=== PATIENT | female | born 1950 | race Caucasian/White ===

== ENCOUNTER 2017-05-17 09:50 | Emergency (ER) | payer MEDICARE, BC ==
[2017-05-17 10:12] VITALS: BP 130/60
--- NOTE | 2017-05-17 10:36 | UC ---
Respiratory Complaint HPI - HPI Summary HPI Summary: Pt presents with body aches, fever, and fatigue. She tells me that yesterday she had an abrupt onset of a fever, body aches, fatigue "feeling worn out", and felt that her skin hurt everywhere. She has not been ill recently. Admits that she is under a lot of stress because her is undergoing chemotherapy and she is very busy. She denies headache, dizziness, cough, sinus congestion, earache, ST, SOB, chest pain, abdominal pain, N/V/D/C, recent injury, numbness, or tingling. - History of Current Complaint Hx Obtained From: Patient Hx Last Menstrual Period: post Severity Initially: Moderate Severity Currently: Moderate Pain Intensity: 7 Pain Scale Used: 0-10 Numeric <Phillip Easton - Last Filed: 05/17/17 18:59> <Isis Ying - Last Filed: 05/18/17 14:16> - History of Current Complaint Chief Complaint: UCGeneralIllness Stated Complaint: FEVER, ACHES, AND CHILLS Time Seen by Provider: 05/17/17 10:36 - Allergies/Home Medications Allergies/Adverse Reactions: Allergies Allergy/AdvReac Type Severity Reaction Status Date / Time Shellfish Allergy Allergy Swelling Verified 05/17/17 10:12 PMH/Surg Hx/FS Hx/Imm Hx Previously Healthy: Yes - Surgical History Surgical History: Yes Surgery Procedure, Year, and Place: hysterectomy, uterine repair surgery - appendix out at that time. csection x2 - Social History Occupation: Retired Lives: With Family Alcohol Use: Rare Substance Use Type: None Smoking Status (MU): Never Smoked Tobacco <Phillip Easton - Last Filed: 05/17/17 18:59> Review of Systems Constitutional: Fever, Fatigue Skin: Other - Sensitivity everywhere Eyes: Negative ENT: Negative Respiratory: Negative Cardiovascular: Negative Gastrointestinal: Negative Genitourinary: Negative Motor: Negative Neurovascular: Negative Musculoskeletal: Other: - Body aches Neurological: Negative Psychological: Negative All Other Systems Reviewed And Are Negative: Yes <Phillip Easton - Last Filed: 05/17/17 18:59> Physical Exam Triage Information Reviewed: Yes Appearance: Well-Appearing, Well-Nourished Vital Signs: Initial Vital Signs Temp 98.4 F 05/17/17 10:06 Pulse 101 05/17/17 10:06 Resp 18 05/17/17 10:06 BP 130/60 05/17/17 10:06 Pulse Ox 96 05/17/17 10:06 Vital Signs Reviewed: Yes Eyes: Positive: Conjunctiva Clear. Negative: Conjunctiva Inflamed, Discharge ENT: Positive: Hearing grossly normal, Pharynx normal, TMs normal, Tonsillar swelling - 1+, Uvula midline. Negative: Pharyngeal erythema, Nasal congestion, Nasal drainage, TM bulging, TM dull, TM red, Tonsillar exudate, Sinus tenderness Neck: Positive: Supple, Nontender, No Lymphadenopathy Respiratory: Positive: Chest non-tender, Lungs clear, Normal breath sounds, No respiratory distress, No accessory muscle use Cardiovascular: Positive: RRR, No Murmur, Pulses Normal, Brisk Capillary Refill Abdomen Description: Positive: Nontender, No Organomegaly, Soft. Negative: CVA Tenderness (R), CVA Tenderness (L), Distended, Guarding Bowel Sounds: Positive: Present Musculoskeletal: Positive: Strength Intact, ROM Intact, No Edema Neurological: Positive: Alert, Muscle Tone Normal, Other: - CN II-XII grossly intact. No focal deficits. Psychological: Positive: Age Appropriate Behavior Skin: Negative: rashes, significant lesion(s) <Phillip Easton - Last Filed: 05/17/17 18:59> Vital Signs: Initial Vital Signs Temp 98.4 F 05/17/17 10:06 Pulse 101 05/17/17 10:06 Resp 18 05/17/17 10:06 BP 130/60 05/17/17 10:06 Pulse Ox 96 05/17/17 10:06 <Isis Ying - Last Filed: 05/18/17 14:16> Diagnostic Evaluation - Laboratory O2 Sat by Pulse Oximetry: 96 - EKG Cardiac Rate: NL Cardiac Rhythm: Sinus: Normal - Rate 91. No ST elevation <Phillip Easton - Last Filed: 05/17/17 18:59> Respiratory Course/Dx - Course Course Of Treatment: Flu swab neg. POC glucose 157, fasting - has not eaten yet today. EKG was NSR with possible old inferior infarct. No acute changes. No ST elevation. Likely viral syndrome, will treat conservative with rest, fluids, and tylenol/ibuprofen. F/u with pcp regarding elevated fasting BG without dx of DM. - Differential Dx/Diagnosis Differential Diagnosis/HQI/PQRI: Asthma, Bronchitis, CHF, Influenza, Lower Resp Infection, Sinusitis, Tuberculosis Provider Diagnoses: Fatigue. Body aches. Elevated fasting blood glucose <Phillip Easton - Last Filed: 05/17/17 18:59> Discharge <Phillip Easton - Last Filed: 05/17/17 18:59> <Isis Ying - Last Filed: 05/18/17 14:16> - Discharge Plan Condition: Stable Disposition: HOME Patient Education Materials: Viral Syndrome (ED) Referrals: Chiquita Caba MD [Primary Care Provider] - As Soon As Possible Additional Instructions: If you develop a fever, SOB, chest pain, new or worsening symptoms - please call your PCP or go to the ED. Please wear a mask around anyone that is immunocompromised or undergoing chemotherapy. Please follow up with your primary doctor regarding your elevated blood sugar ( 157 here). Attestation Statement User Type: Provider - I was available for consult. This patient was seen by the VALENTE. The patient was not presented to, seen by, or examined by me. -Janet <Isis Ying - Last Filed: 05/18/17 14:16>
== END 2017-05-17 12:00 | disposition home or self-care (01) ==
LOC: UCEAST 09:50
DX: R53.83 Other fatigue (principal); R52 Pain, unspecified; R73.09 Other abnormal glucose
CPT/HCPCS: 87502; 93005; 99212; G0463

== ENCOUNTER 2017-05-18 17:02 | Emergency (ER) | payer MEDICARE, BC ==
[2017-05-18 19:01] LABS: Hematocrit 32 % (35-47); Hemoglobin 11.3 g/dl (12.0-16.0); Mean Corpuscular HGB Conc 36 g/dl (31-36); Mean Corpuscular Hemoglobin 35 pg (27-31); Mean Corpuscular Volume 98 fL (80-97); Mean Platelet Volume 7 um3 (7.4-10.4); Red Blood Count 3.26 10^6/ul (4.0-5.4); Red Cell Distribution Width 13 % (10.5-15); White Blood Count 10.1 10^3/ul (3.5-10.8)
[2017-05-18 19:14] LABS: Albumin 3.7 g/dL (3.2-5.2); BUN/Creatinine Ratio 18.8 (8-20); Calcium 9.3 mg/dL (8.6-10.3); EGFR African American 85.3 (>60); EGFR Non-African American 66.3 (>60); Globulin 3.7 g/dL (2-4); Magnesium 2.1 mg/dL (1.9-2.7); Potassium 3.2 mmol/L (3.5-5.0); Total Bilirubin 0.5 mg/dL (0.2-1.0); Total Protein 7.4 g/dL (6.4-8.9)
[2017-05-18] MEDS ORDERED: Acetaminophen TAB* 325 MG PO ONE (21:28)
--- NOTE | 2017-05-18 21:58 | RAD ---
INDICATION: Fever and chills. Body aches COMPARISON: None TECHNIQUE: PA and lateral dual-energy views were obtained. FINDINGS: Bones/Soft Tissues: There are no acute bony findings. Cardiomediastinal: The cardiomediastinal silhouette is normal. Lungs: There is a left suprahilar infiltrate. The remaining lung scott are clear.. Pleura: There are no pleural effusions. Other: None IMPRESSION: LEFT SUPRAHILAR INFILTRATE. SUGGEST FOLLOW-UP TO DOCUMENT COMPLETE RESOLUTION. IF THERE IS NOT COMPLETE RESOLUTION ON A FOLLOW-UP EXAMINATION IN 7-10 DAYS, SUGGEST CT IMAGING.
[2017-05-18] MEDS: NS 0.9% 1000 ML* 2,000 ML IV ONE (22:16)
[2017-05-18] MEDS ORDERED: Levofloxacin TAB* 250 MG PO ONE (22:32)
[2017-05-18 22:52] LABS: Urine Bacteria Absent (Absent); Urine Bilirubin Negative (Negative); Urine Glucose Negative (Negative); Urine Nitrite Negative (Negative)
[2017-05-18] MEDS ORDERED: cefTRIAXone VIAL(*) 1,000 MG in NS 0.9% 50 ML* 50 ML IVPB ONE (23:39)
[2017-05-18 23:40] VITALS: BP 120/70
--- NOTE | 2017-05-19 04:33 | ED ---
Yamila Rand Edward, scribed for Gualberto Sy MD on 05/18/17 at 2127 . HPI Febrile Illness - HPI Summary HPI Summary: 67 y/o female presents to the ED c/o constant cough and congestion starting 2 days ago. Pt c/o body aches, chills first. Pt also developed a fever that was 103.6 this afternoon. Pt was seen at [facility] yesterday and an influenza test was negative. Denies urinary symptoms, ABD pain. PMHx HTN, ulcerative colitis, RA. - History of Current Complaint Chief Complaint: EDGeneral Hx Obtained From: Patient Hx Last Menstrual Period: post Onset/Duration: Started Days Ago, Still Present Timing: Constant Aggravating Factors: Nothing Alleviating Factors: Nothing Associated Signs and Symptoms: Chills, Joint Pain, Other: - fever - Allergy/Home Medications Allergies/Adverse Reactions: Allergies Allergy/AdvReac Type Severity Reaction Status Date / Time Shellfish Allergy Allergy Swelling Verified 05/18/17 17:05 PMH/Surg Hx/FS Hx/Imm Hx Previously Healthy: No Endocrine/Hematology History: Reports: Hx Thyroid Disease Cardiovascular History: Reports: Hx Hypertension Musculoskeletal History: Denies: Hx Rheumatoid Arthritis, Hx Osteoporosis - Cancer History Hx Chemotherapy: No Hx Radiation Therapy: No - Surgical History Surgery Procedure, Year, and Place: hysterectomy, uterine repair surgery - appendix out at that time. csection x2 Infectious Disease History: No Infectious Disease History: Denies: Hx Clostridium Difficile, Hx Hepatitis, History Other Infectious Disease, Traveled Outside the [place] in Last 30 Days - Family History Known Family History: Positive: Unknown - Social History Alcohol Use: Rare Hx Substance Use: No Substance Use Type: Reports: None Hx Tobacco Use: No Smoking Status (MU): Never Smoked Tobacco Review of Systems Positive: Fever, Chills, Other - body aches Eyes: Negative ENT: Other - sinus congestion Cardiovascular: Negative Positive: Cough Gastrointestinal: Negative Genitourinary: Negative Musculoskeletal: Negative Skin: Negative Neurological: Negative Psychological: Normal All Other Systems Reviewed And Are Negative: Yes Physical Exam Triage Information Reviewed: Yes Vital Signs On Initial Exam: Initial Vitals Temp Pulse Resp BP Pulse Ox 99.4 F 115 16 136/69 98 05/18/17 17:05 05/18/17 17:05 05/18/17 17:05 05/18/17 17:05 05/18/17 17:05 Vital Signs Reviewed: Yes Appearance: Positive: Well-Appearing, No Pain Distress Skin: Positive: Warm - Warm to touch, Skin Color Reflects Adequate Perfusion, Dry, Other - No rash Head/Face: Positive: Normal Head/Face Inspection Eyes: Positive: EOMI, LUIS ALFREDO ENT: Positive: TMs normal, Other - tacky mucous membranes Neck: Positive: Supple, Nontender Respiratory/Lung Sounds: Positive: Clear to Auscultation, Breath Sounds Present Cardiovascular: Positive: Pulses are Symmetrical in both Upper and Lower Extremities, Tachycardia - but regular Abdomen Description: Positive: Nontender, Soft Bowel Sounds: Positive: Present Musculoskeletal: Positive: Normal, Strength/ROM Intact Neurological: Positive: Normal, Sensory/Motor Intact Diagnostics - Vital Signs Vital Signs Temp Pulse Resp BP Pulse Ox 05/18/17 19:07 101.1 F 101 16 136/65 100 05/18/17 17:05 99.4 F 115 16 136/69 98 - Laboratory Lab Results: Lab Results 05/18/17 05/18/17 05/18/17 Range/Units 18:37 18:37 18:37 WBC 10.1 (3.5-10.8) 10^3/ul RBC 3.26 L (4.0-5.4) 10^6/ul Hgb 11.3 L (12.0-16.0) g/dl Hct 32 L (35-47) % MCV 98 H (80-97) fL MCH 35 H (27-31) pg MCHC 36 (31-36) g/dl RDW 13 (10.5-15) % Plt Count 234 (150-450) 10^3/ul MPV 7 L (7.4-10.4) um3 Neut % (Auto) 82.7 (38-83) % Lymph % (Auto) 7.3 L (25-47) % Barry % (Auto) 9.5 H (1-9) % Eos % (Auto) 0 (0-6) % Baso % (Auto) 0.5 (0-2) % Absolute Neuts (auto) 8.3 H (1.5-7.7) 10^3/ul Absolute Lymphs (auto) 0.7 L (1.0-4.8) 10^3/ul Absolute Monos (auto) 1.0 H (0-0.8) 10^3/ul Absolute Eos (auto) 0 (0-0.6) 10^3/ul Absolute Basos (auto) 0 (0-0.2) 10^3/ul Absolute Nucleated RBC 0.01 10^3/ul Nucleated RBC % 0.1 Sodium 126 L (133-145) mmol/L Potassium 3.2 L (3.5-5.0) mmol/L Chloride 90 L (101-111) mmol/L Carbon Dioxide 22 (22-32) mmol/L Anion Gap 14 H (2-11) mmol/L BUN 16 (6-24) mg/dL Creatinine 0.85 (0.51-0.95) mg/dL Est GFR ( Amer) 85.3 (>60) Est GFR (Non-Af Amer) 66.3 (>60) BUN/Creatinine Ratio 18.8 (8-20) Glucose 101 H (70-100) mg/dL Lactic Acid 1.1 (0.5-2.0) mmol/L Calcium 9.3 (8.6-10.3) mg/dL Magnesium 2.1 (1.9-2.7) mg/dL Total Bilirubin 0.50 (0.2-1.0) mg/dL AST 24 (13-39) U/L ALT 17 (7-52) U/L Alkaline Phosphatase 61 (34-104) U/L C-React Prot High Sens 152.47 mg/L Total Protein 7.4 (6.4-8.9) g/dL Albumin 3.7 (3.2-5.2) g/dL Globulin 3.7 (2-4) g/dL Albumin/Globulin Ratio 1.0 (1-3) Result Diagrams: 05/18/17 18:37 05/18/17 18:37 Lab Statement: Any lab studies that have been ordered have been reviewed, and results considered in the medical decision making process. - Radiology CXR Xray Interpretation: Positive (See Comments) - LEFT SUPRAHILAR INFILTRATE. SUGGEST FOLLOW-UP TO DOCUMENT COMPLETE RESOLUTION. IF THERE IS NOT COMPLETE RESOLUTION ON A FOLLOW-UP EXAMINATION IN 7-10 DAYS, SUGGEST CT IMAGING. Radiology Interpretation Completed By: Radiologist Re-Evaluation - Re-Evaluation 1 Re-Evaluation Time: 22:29 Change: Improved Comment: Discuss XR results, plan of care. Pt has a history of immune suppression. Course/Dx - Course Course Of Treatment: Pt on immunosuppressants. Infiltrate on xray. Started abx - - dose of IV abx and oral levaquin that she will be transitioned to. Pt would like to discharge. IVF given and pt improving here. Close f/u with PMD. Return inst/precautions provided. - Febrile Illness Differential Diagnoses: Bacteremia, Fever of Unknown Origin, Pneumonia - Diagnoses Provider Diagnoses: Left upper lobe pneumonia Discharge - Discharge Plan Condition: Improved Disposition: HOME Prescriptions: Albuterol inh POWDER (NF) [Proair Respiclick] 108 mcg INH Q4HR PRN #1 ml PRN Reason: Cough Benzonatate [TESSALON 200 MG CAP] 200 mg PO TID PRN #20 cap PRN Reason: Cough guaiFENesin ER TAB [Mucinex*] 600 mg PO BID #20 tab.er Levofloxacin TAB* [Levaquin TAB*] 750 mg PO DAILY #6 tab Patient Education Materials: Bacterial Pneumonia (ED) Referrals: Chiquita Caba MD [Primary Care Provider] - Additional Instructions: Rest. Deep breathing exercises. Humidifier while sleeping. Return with persistent fever, short of breath, worse or other concerns. Treat fever with tylenol. Stay well hydrated. The documentation as recorded by the Yamila rodrigues Edward accurately reflects the service I personally performed and the decisions made by , Gualberto Sy MD.
== END 2017-05-18 23:58 | disposition home or self-care (01) ==
LOC: ED 17:02
DX: J18.9 Pneumonia, unspecified organism (principal); I10 Essential (primary) hypertension; M06.9 Rheumatoid arthritis, unspecified; E07.9 Disorder of thyroid, unspecified
CPT/HCPCS: 36415; 71020; 80053; 81003; 81015; 83605; 83735; 85025; 86141; 87040; 96360; 99283; A9270-GY; J0696